=== PATIENT | female | born 1965 | race Caucasian/White ===

== ENCOUNTER 2024-06-05 09:36 | Outpatient (AMB) | payer BC, SELFPAY ==
[2024-06-05 09:39] VITALS: BP 122/70; PULSE 92; O2SAT 100; BMI 29.2
--- NOTE | 2024-06-05 09:39 | A.OFFVIS_ITS ---
Vital Signs 06/05/24 09:39 Height 5 ft 3 in Weight 165 lb BMI 29.2 BP 122/70 Blood Pressure Location Rt brachial Position Sitting Pulse 92 Pulse Source Doppler Pulse Oximetry (%) 100 Oxygen Delivery Method Room Air Intake Visit Reasons: marlene Allergies No Known Allergies Allergy (Verified 06/05/24 09:43) HPI HPI marlene: Details: 58-year-old lady, nonsmoker, with recent diagnosis of mild obstructive sleep apnea referred for evaluation. Patient complains of unrestful night sleep and multiple awakenings 10-12 times a night. She states that she sleeps for about 5-6 hours a night. She denies underlying personal or family history of lung disease. [facility] Social History (Updated 06/05/24 @ 09:47 by Melissa Tim [facility]) Patient Tobacco Use Status: Never used Tobacco Review of Systems Const Reports daytime sleepiness, Denies excessive sweating, Reports fatigue, Denies fever(s), Denies lethargy, Denies malaise, Denies night sweats, Denies snoring and Denies weight loss Eyes Denies blurry vision and Denies itchy eyes ENT Denies nasal congestion, Denies post nasal drip, Denies sinus pain, Denies sinus pressure and Denies other ( Thrush) Card Denies chest pain, Denies pedal edema, Denies dyspnea, Denies orthopnea and Denies paroxysmal nocturnal dyspnea Resp Denies cough, Denies hemoptysis, Denies excessive phlegm production, Denies dyspnea, Denies snoring and Denies wheezing GI Denies abdominal pain and Denies heartburn Musc Denies myalgias, Denies arthralgias and Denies joint swelling Skin/Breast Denies rash Neuro Denies memory loss and Denies seizure-like activity Psych Denies abnormal sleep pattern, Denies anxiety and Denies memory loss Endo Denies excessive sweating, Reports fatigue and Denies heat intolerance Macario/Lymph Denies easy bruising Aller/Immun Denies itchy eyes, Denies seasonal rhinorrhea and Denies wheezing Physical Exam Vital Signs: Last Vital Signs Pulse 92 06/05/24 09:39 BP 122/70 06/05/24 09:39 Pulse Ox 100 06/05/24 09:39 Oxygen Delivery Method Room Air 06/05/24 09:39 BMI result Body Mass Index 29.2 Const General: no acute distress and alert Nutritional Appearance: not obese Orientation/consciousness: Other orientation findings ( oriented) HEENT Head: Yes atraumatic Eyes General: appearance normal, both eyes and all related structures Sclerae: sclerae normal EOM: EOMs intact bilaterally Neck Neck: Yes supple Lymphatic: no lymphadenopathy noted Resp Effort & Inspection: normal respiratory effort and no use of accessory muscles Auscultation: clear to auscultation bilaterally Cardio Rate: regular rate Rhythm: regular rhythm Heart sounds: no gallops, no murmurs and no rubs Skin General skin exam: other ( warm) Extrem General: No clubbing, No cyanosis and No edema Assessment & Plan Assessment & Plan (1) MARLENE (obstructive sleep apnea): Code(s): G47.33 - Obstructive sleep apnea (adult) (pediatric) Category: Medical Plan: Results of sleep study reviewed, underlying mild obstructive sleep apnea with AHI of 7. Patient isn't particularly interested in CPAP therapy. Discussed jaw advancement device usage. Patient would like to try jaw advancement device 1st. (2) Deviated septum: Code(s): J34.2 - Deviated nasal septum Category: Medical Plan: Will refer to ENT for further evaluation. Orders: Referrals Ear/Nose/Throat Referral J34.2 - Deviated nasal septum Coding Level of Care Code New Pt Level 4 (35864) Diagnoses MARLENE (obstructive sleep apnea) G47.33 Deviated septum J34.2
== END 2024-06-05 09:58 | disposition home or self-care (01) ==
PROVIDERS: PCP Family Medicine; Visit Provider Internal Medicine Pulmonary Disease
DX: G47.33 Obstructive sleep apnea (adult) (pediatric) (principal); J34.2 Deviated nasal septum
CPT/HCPCS: 99204